=== PATIENT | male | born 1975 | race African-American/Black ===

== ENCOUNTER 2023-04-13 08:13 | Day surgery (SDC) | payer OTHER ==
[2023-04-07 17:00] VITALS: BMI 25.0
[2023-04-13 08:30] VITALS: TEMP 97.4
[2023-04-13 09:27] VITALS: RESP 19
[2023-04-13 09:29] VITALS: BP 102/68; PULSE 68
== END 2023-04-13 09:50 | disposition home or self-care (01) ==
LOC: FASU-ENDO 08:13
PROVIDERS: ATTEND Internal Medicine Gastroenterology
PROC: 0DJD8ZZ Inspection of Lower Intestinal Tract, Via Natural or Artificial Opening Endoscopic (ICD-10-PCS; principal; 2023-04-13 08:41)
DX: Z12.11 Encounter for screening for malignant neoplasm of colon (principal); K57.30 Diverticulosis of large intestine without perforation or abscess without bleeding